=== PATIENT | female | born 1990 | race Caucasian/White ===

== ENCOUNTER 2017-11-07 05:11 | Emergency (ER) | payer OTHER ==
[~2017-11-07 05:11] MED LIST: LORA10TA PO
--- NOTE | 2017-11-07 05:22 | PD ---
HPI Chief Complaint: Psychiatric Symptoms Time Seen by Provider: 05:22 Travel History International Travel<30 days: No Contact w/Intl Traveler<30days: No Traveled to known affect area: No History of Present Illness HPI 27-year-old female with history of depression, currently not taking medication, presents to the emergency department under [facility] act for psychiatric evaluation. Patient states that she has been having worsening depression and "no longer wants to live." Her plan is to jump in front of a train. She is asking for help. She reports alcohol abuse. Denies any acute medical needs. States she is currently on her menstrual cycle. Denies any chance of . PFSH Past Medical History Anxiety: Yes Depression: Yes COPD: No Cerebrovascular Accident: No Diminished Hearing: No GERD: No Genitourinary: No Headaches: Yes (Per patient, once a week) Hiatal Hernia: No Kidney Stones: No Musculoskeletal: No Neurologic: No Reproductive: No Respiratory: No Immunizations Current: Yes Migraines: No Renal Failure: No Sleep Apnea: No Ulcer: No : 2 Para: 1 Miscarriage: 1 : 0 Social History Alcohol Use: Yes (relapse 2 times in 2 weeks after over one year sobriety. ) Tobacco Use: Yes (SMOKES 1/4 PACK PER DAY) Substance Use: Yes Allergies-Medications (Allergen,Severity, Reaction): Coded Allergies: No Known Allergies (Verified Adverse Reaction, Unknown, 11/07/17) Reported Meds & Prescriptions Reported Meds & Active Scripts Active Reported Claritin 10 Mg Tab (Loratadine) 10 Mg Tab 10 Mg PO DAILY Review of Systems Except as stated in HPI: all other systems reviewed are Neg Physical Exam Narrative GENERAL: Well-nourished female patient, tearful, but in no acute distress. SKIN: Focused skin assessment warm/dry. HEAD: Atraumatic. Normocephalic. EYES: Pupils equal and round. No scleral icterus. No injection or drainage. ENT: No nasal bleeding or discharge. Mucous membranes pink and moist. NECK: Trachea midline. No JVD. CARDIOVASCULAR: Tachycardic rate and rhythm. No murmur appreciated. RESPIRATORY: No accessory muscle use. Clear to auscultation. Breath sounds equal bilaterally. GASTROINTESTINAL: Abdomen soft, non-tender, nondistended. Hepatic and splenic margins not palpable. MUSCULOSKELETAL: No obvious deformities. No clubbing. No cyanosis. No edema. NEUROLOGICAL: Awake and alert. No obvious cranial nerve deficits. Motor grossly within normal limits. Normal speech. Data Data Last Documented VS Vital Signs Date Time Temp Pulse Resp B/P (MAP) Pulse Ox O2 Delivery O2 Flow Rate FiO2 11/07/17 05:31 16 11/07/17 05:24 107 128/89 (102) 95 Room Air Orders Orders Complete Blood Count With Diff (11/07/17 05:31) Basic Metabolic Panel (Bmp) (11/07/17 05:31) Ed Urine Pregnancytest Poc (11/07/17 05:31) Psych Screen (11/07/17 05:31) Drug Screen, Random Urine (11/07/17 05:31) Alcohol (Ethanol) (11/07/17 05:31) Labs Laboratory Tests Test 11/07/17 05:30 White Blood Count 12.4 TH/MM3 Red Blood Count 5.03 MIL/MM3 Hemoglobin 15.8 GM/DL Hematocrit 45.8 % Mean Corpuscular Volume 91.1 FL Mean Corpuscular Hemoglobin 31.4 PG Mean Corpuscular Hemoglobin Concent 34.5 % Red Cell Distribution Width 12.7 % Platelet Count 324 TH/MM3 Mean Platelet Volume 8.2 FL Neutrophils (%) (Auto) 45.6 % Lymphocytes (%) (Auto) 48.0 % Monocytes (%) (Auto) 5.2 % Eosinophils (%) (Auto) 0.6 % Basophils (%) (Auto) 0.6 % Neutrophils # (Auto) 5.7 TH/MM3 Lymphocytes # (Auto) 6.0 TH/MM3 Monocytes # (Auto) 0.6 TH/MM3 Eosinophils # (Auto) 0.1 TH/MM3 Basophils # (Auto) 0.1 TH/MM3 CBC Comment AUTO DIFF Blood Urea Nitrogen 5 MG/DL Creatinine 0.64 MG/DL Random Glucose 105 MG/DL Calcium Level 8.3 MG/DL Sodium Level 140 MEQ/L Potassium Level 3.7 MEQ/L Chloride Level 109 MEQ/L Carbon Dioxide Level 20.5 MEQ/L Anion Gap 11 MEQ/L Estimat Glomerular Filtration Rate 110 ML/MIN Urine Opiates Screen NEG Urine Barbiturates Screen NEG Urine Amphetamines Screen NEG Urine Benzodiazepines Screen NEG Urine Cocaine Screen POS Urine Cannabinoids Screen NEG Ethyl Alcohol Level 340 MG/DL MDM Medical Decision Making Medical Screen Exam Complete: Yes Emergency Medical Condition: Yes Medical Record Reviewed: Yes Differential Diagnosis Mood disorder versus personality disorder versus adjustment reaction disorder versus substance abuse Narrative Course 27-year-old female with history of depression presents to emergency department for evaluation under [facility]. Patient is tearful, stating she no longer wants to live. Admits to heavy alcohol consumption. Lab work is ordered for medical clearance. Pending no acute lab abnormality, patient is medically cleared to undergo psychiatric screening for further evaluation and disposition. Lab work is reviewed. Patient is intoxicated with EtOH of 340. She also tested positive for cocaine. Otherwise lab work is without acute concern. Patient is medically cleared at this time. Mental health screening discussed with the patient. Psychiatric screen ordered. Diagnosis Primary Impression: Major depressive disorder Qualified Codes: F33.1 - Major depressive disorder, recurrent, moderate Condition: Stable Lupe Bland Nov 07, 2017 05:22
[2017-11-07 05:24] VITALS: BP 128/89; PULSE 107; RESP 16; O2SAT 95
[2017-11-07 05:44] LABS: AUTOMATED NEUTROPHIL # 5.7 TH/MM3 (1.8-7.7); BASOPHIL # 0.1 TH/MM3 (0-0.2); BASOPHIL % 0.6 % (0.0-2.0); EOSINOPHIL # 0.1 TH/MM3 (0-0.4); EOSINOPHIL % 0.6 % (0.0-4.0); HEMATOCRIT 45.8 % (35.0-46.0); HEMOGLOBIN 15.8 GM/DL (11.6-15.3); MEAN CELL VOLUME 91.1 FL (80.0-100.0); MEAN CORPUSCULAR HEMOGLOBIN 31.4 PG (27.0-34.0); MEAN CORPUSCULAR HGB CONC 34.5 % (32.0-36.0); MEAN PLATELET VOLUME 8.2 FL (7.0-11.0); MONO % 5.2 % (0.0-8.0); MONOCYTE # 0.6 TH/MM3 (0-0.9); NEUT % 45.6 % (16.0-70.0); PLATELET COUNT 324 TH/MM3 (150-450); RED BLOOD COUNT 5.03 MIL/MM3 (4.00-5.30); RED CELL DISTRIBUTION WIDTH 12.7 % (11.6-17.2); WHITE BLOOD COUNT 12.4 TH/MM3 (4.0-11.0)
[2017-11-07 06:07] LABS: BICARBONATE 20.5 MEQ/L (21.0-32.0); CALCIUM 8.3 MG/DL (8.5-10.1); CREATININE 0.64 MG/DL (0.50-1.00)
[2017-11-07 06:41] LABS: LYMPHOCYTES 55 % (9-44); MONOCYTES 2 % (0-8); NEUTROPHIL # MANUAL DIFF 5.3 TH/MM3 (1.8-7.7); POLYS (SEG NEUTROPHILS) 43 % (16-70)
[2017-11-07 07:11] VITALS: BP 125/85; PULSE 101; RESP 16; O2SAT 95
[2017-11-07] MEDS ORDERED: LORazepam 2 MG/ML VIAL IV PUSH PRN ×4 (13:30)
[2017-11-07] MEDS ORDERED: LORazepam 2 MG TAB PO PRN (13:30)
[2017-11-07] MEDS ORDERED: FLUMAZENIL 0.5 MG/5 ML VIAL IV PUSH PRN (13:30)
[2017-11-07] MEDS ORDERED: LORazepam 1 MG TAB PO PRN (13:30)
[2017-11-07 14:00] VITALS: BP 137/65; PULSE 97; RESP 20; TEMP 97.8; O2SAT 100
[2017-11-07 18:34] VITALS: BP 127/74; PULSE 99; RESP 18; O2SAT 99
[2017-11-07 22:36] VITALS: BP 140/90; PULSE 91; RESP 17; TEMP 98.6; O2SAT 97
== END 2017-11-08 01:23 ==
LOC: NEPD 05:11 → NEPJ 11-08 01:23
DX: F32.9 Major depressive disorder, single episode, unspecified (principal); F10.129 Alcohol abuse with intoxication, unspecified; F41.9 Anxiety disorder, unspecified; F17.200 Nicotine dependence, unspecified, uncomplicated; Z79.899 Other long term (current) drug therapy
CPT/HCPCS: 80048; 80307; 84703; 85007; 85027; 99285